=== PATIENT | male | born 1980 | race Caucasian/White ===

== ENCOUNTER 2016-08-17 18:46 | Emergency (ER) | payer MEDICAID, OTHER ==
[2016-08-17] MEDS ORDERED: CEPHALEXIN 500MG PREPACK#4 BTL TAKEHOME ONE (20:06)
[2016-08-17] MEDS ORDERED: SULFAMETHOX/TMP 800/160 MG 1 TAB PO ONE (20:06)
--- NOTE | 2016-08-17 20:08 | EDPHY ---
H & P Stated Complaint: IVDA 1 WEEK AGO NOW R ARM SWELLING Source: Patient Exam Limitations: No limitations - Personal History Current Tetanus/Diphtheria Vaccine: Yes Current Tetanus Diphtheria and Acellular Pertussis (TDAP): Yes Tetanus Vaccine Date: 2011 - Medical/Surgical History Hx Asthma: No Hx Chronic Respiratory Disease: No Hx Diabetes: No Hx Cardiac Disease: No Hx Renal Disease: No Hx Cirrhosis: No Hx Alcoholism: No Hx HIV/AIDS: No Hx Splenectomy or Spleen Trauma: No Other PMH: pmh-bipolar, migraines, ADD, depression. surg-none, IVDA - Social History Smoking Status: Current every day smoker HPI/ROS: CHIEF COMPLAINT: Right arm pain and swelling HISTORY OF PRESENT ILLNESS: Patient has right arm pain and swelling over the last 5 days. This is in the forearm only. [id number]. Slowly worsening. No numbness or tingling. No pain in the hand, wrist, elbow, brachium or shoulder. He admits to injecting heroin in the affected area last Saturday. The swelling developed 2 days later. No fever or chills. No sensory changes. No motor changes. Pain is worse with palpation or movement. Improved at rest. No other associated complaints or modifying factors. No use of blood thinners. Has not injected since. Tetanus is up-to-date. REVIEW OF SYSTEMS: Ten systems reviewed and are negative unless otherwise noted in the HPI PERTINENT MEDICAL HISTORY: IV drug use last Saturday EXAMINATION General Appearance: Alert, no distress Head: normocephalic, atraumatic Eyes: Pupils equal and round, no conjunctival pallor or injection ENT, Mouth: Mucous membranes moist Neck: Normal inspection, supple, non-tender Respiratory: No retractions or distress. Cardiovascular: Regular rate. Pulses are intact distally symmetrically with radial pulses 2+. Neurological: A&O, nonfocal, normal gait Skin: Warm and dry. Mild erythema over the right forearm, medial and anterior. No crepitus. No subcutaneous emphysema. No streaking. No lacerations. No trauma. No purulence Extremities: Mild tenderness over the area of cellulitis. Range of motion is fully intact in the hands, fingers, wrist, elbow and shoulder symmetrically. Neurovascular intact distal to the right cellulitis Psychiatric: Mood and affect normal DIFFERENTIAL DIAGNOSES: Including but not limited to cellulitis, DVT, infection, abscess, extravasation of substance MDM: 8:09 p.m. Right upper extremity cellulitis of the forearm in a patient who use IV drugs last Saturday. There is no involvement of the hand, wrist, elbow or shoulder. Range of motion is fully intact without any hesitation. No fever. Vital signs stable. I have ordered an ultrasound to rule out DVT, but I suspect this is just cellulitis without evidence of abscess. This started treatment with Bactrim and Keflex. 8:52 p.m. Patient has asked to be discharged home. The ultrasound is not yet been performed. We discussed the risks and benefits of not having the ultrasound performed this includes DVT, worsening of extremity and even PE or . He understands this risk and still wants to decline the ultrasound and to be discharged home. He is free to return at any time should he change his mind. He informs that he will come back tomorrow. We have started treatment with Bactrim and Keflex and he is to continue this. Continue with these medications. Ibuprofen, warm compresses. Return here for increasing redness, swelling or pain. Return here for any fever or chills. He is comfortable with this plan and discharged home neurovascular intact in stable condition SUPERVISION: This patient was independently evaluated without direct examination by the attending physician. Case was discussed with attending physician. (Maximino Elaine) Constitutional: Initial Vital Signs Temperature (C) 36.7 C 08/17/16 19:07 Heart Rate 93 08/17/16 19:07 Respiratory Rate 18 08/17/16 19:07 Blood Pressure 117/82 H 08/17/16 19:07 O2 Sat (%) 100 08/17/16 19:07 O2 Delivery Mode Room Air Allergies/Adverse Reactions: erythromycin base Allergy (Intermediate, Verified 08/17/16 19:09) Other-Enter Comments pseudoephedrine Allergy (Intermediate, Verified 08/17/16 19:09) Other-Enter Comments Penicillins Allergy (Unknown, Verified 08/17/16 19:09) Unknown sleep aids Allergy (Intermediate, Uncoded 08/17/16 19:09) Other-Enter Comments Home Medications: Medication Instructions Recorded lamoTRIgine [Lamictal] mg PO 12/24/10 Latuda 05/12/15 Buprenorphine HCl/Naloxone HCl 24 tab SL 08/17/16 [Suboxone 8 mg-2 mg Tablet] Cephalexin [Keflex (*)] 500 mg PO QID #40 cap 08/17/16 Lurasidone HCl [Latuda] 40 mg PO DAILY@0800 08/17/16 Sulfamethox/Tmp 800/160 mg 2 tab PO BID 10 Days 08/17/16 [Bactrim Ds] lamoTRIgine [Lamictal] 200 mg PO 08/17/16 Medical Decision Making ED Course/Re-evaluation: I did not see this patient while he was in the emergency department. However his care was discussed with the PA while the patient was in the department. I agree with treatment plan and management (Isaac Escobar) - Data Points Medications Given: Discontinued Medications Cephalexin (Keflex 500 Mg Prepack#4) 1 btl TAKEHOME EDNOW ONE PRN Reason: Protocol Stop: 08/17/16 20:07 Last Admin: 08/17/16 20:15 Dose: 1 btl Trimethoprim/Sulfamethoxazole (Bactrim Ds) 2 ea PO EDNOW ONE PRN Reason: Protocol Stop: 08/17/16 20:07 Last Admin: 08/17/16 20:16 Dose: 2 ea Departure - Departure Disposition: Home, Routine, Self-Care Clinical Impression: Right arm cellulitis Condition: Good Instructions: Cellulitis (ED) Additional Instructions: Warm compresses and antibiotics as discussed. Return here for wound check in 24 -48 hours. Return sooner for worsening swelling, redness or pain Referrals: NONE *PRIMARY CARE P,. [Primary Care Provider] - As per Instructions [facility],. [Clinic] - As per Instructions Lisa Goncalves MD [Medical Doctor] - As per Instructions Prescriptions: Cephalexin [Keflex (*)] 500 mg PO QID #40 cap Sulfamethox/Tmp 800/160 mg [Bactrim Ds] 2 tab PO BID 10 Days
[2016-08-17 21:04] VITALS: BP 134/84; PULSE 66; RESP 16; TEMP 97.9; O2SAT 96
== END 2016-08-17 21:04 | disposition home or self-care (01) ==
DX: L03.113 Cellulitis of right upper limb (principal); F17.200 Nicotine dependence, unspecified, uncomplicated

== ENCOUNTER 2017-03-15 08:32 | Emergency (ER) | payer MEDICAID ==
[2017-03-15 08:38] VITALS: RESP 16; TEMP 97.9
--- NOTE | 2017-03-15 08:52 | CPEKG ---
Heart Rate: 90 RR Interval: 667 P-R Interval: 160 QRSD Interval: 96 QT Interval: 376 QTC Interval: 460 P [place]: 32 QRS [place]: 24 T Wave [place]: 42 EKG Severity - NORMAL ECG - EKG Impression: SINUS RHYTHM Electronically Signed By: Tr Mason 15-Mar-2017 15:25:37
[2017-03-15 09:03] LABS: PLATELET COUNT 243 10^3/uL (150-400)
--- NOTE | 2017-03-15 09:12 | EDPHY ---
H & P Time Seen by Provider: 03/15/17 08:58 HPI/ROS: CHIEF COMPLAINT: Chest pain HISTORY OF PRESENT ILLNESS: 36-year-old male presents to the emergency department by private vehicle complaining of substernal chest pain that began at 9 o'clock yesterday morning. The patient states that the pain started rather abruptly. It is intermittent. He currently has no chest pain. He does not feel short of breath. He states that it is independent of movement. He does have pain with deep breathing when he does have the pain but not all the time. No calf pain or swelling. No recent travel. The patient has a history of substance abuse and has been sober from heroin for a few months. He is on methadone. His symptoms started after returning from the methadone Clinic yesterday morning. No vomiting. He does not feel short of breath. No abdominal pain. No nausea or vomiting. No diaphoresis. No headache. REVIEW OF SYSTEMS: Constitutional: No fever, no chills. Eyes: No double or blurry vision. ENT: No sore throat. Respiratory: No cough, no shortness of breath. Cardiac: chest pain. Gastrointestinal: No abdominal pain, vomiting or diarrhea. Genitourinary: No dysuria. Musculoskeletal: No neck or back pain. Skin: No rashes. Neurological: No headache. Past Medical/Surgical History: Substance abuse, smoker, bipolar, migraine headaches, ADD, depression Social History: Single and lives in [place] Smoking Status: Current every day smoker Physical Exam: General Appearance: Alert, no distress. Vital signs are stable. Eyes: Pupils equal and round. Extraocular motions are all intact. ENT: Mouth: Mucous membranes moist. Respiratory: No wheezing, rhonchi, or rales, lungs are clear to auscultation. Unable to reproduce pain with palpation to the anterior aspect of his chest. No palpable crepitus or other bony abnormality. Cardiovascular: Regular rate and rhythm. Gastrointestinal: Abdomen is soft and nontender, no masses, no rebound or guarding, bowel sounds normal. Neurological: Alert and oriented x 3, cranial nerves II through XII grossly intact Skin: Warm and dry, no rashes. Musculoskeletal: Nontender to palpate along the cervical, thoracic or lumbar spine. Neck is supple. Extremities: Full range of motion and no peripheral edema. Psychiatric: Patient is oriented X 3, there is no agitation. Constitutional: Initial Vital Signs Temperature (C) 36.6 C 03/15/17 08:34 Heart Rate 99 03/15/17 08:34 Respiratory Rate 16 03/15/17 08:34 Blood Pressure 131/83 H 03/15/17 08:34 O2 Sat (%) 96 03/15/17 08:34 O2 Delivery Mode Room Air Allergies/Adverse Reactions: erythromycin base Allergy (Intermediate, Verified 03/15/17 08:33) Other-Enter Comments pseudoephedrine Allergy (Intermediate, Verified 03/15/17 08:33) Other-Enter Comments Penicillins Allergy (Unknown, Verified 03/15/17 08:33) Unknown sleep aids Allergy (Intermediate, Uncoded 03/15/17 08:33) Other-Enter Comments Home Medications: Medication Instructions Recorded lamoTRIgine [Lamictal] mg PO 12/24/10 Latuda 05/12/15 Buprenorphine HCl/Naloxone HCl 24 tab SL 08/17/16 [Suboxone 8 mg-2 mg Tablet] Cephalexin [Keflex (*)] 500 mg PO QID #40 cap 08/17/16 Lurasidone HCl [Latuda] 40 mg PO DAILY@0800 08/17/16 Sulfamethox/Tmp 800/160 mg 2 tab PO BID 10 Days tab 08/17/16 [Bactrim Ds] lamoTRIgine [Lamictal] 200 mg PO 08/17/16 Medical Decision Making - Diagnostics EKG Interpretation: Normal sinus rhythm. No acute T-wave abnormalities. This is reviewed by Dr. Tr Mason. See interpretation in trace master. Imaging Results: Imaging Impressions Chest X-Ray 03/15/17 09:09 Impression: Hilar vascular prominence. If there is concern for chronic or recurrent pulmonary emboli or adenopathy, then consider CTA or CT. Results called and discussed with NIKOLAY NGUYEN, at 03/15/2017 9:35 Chest/Thorax CTA 03/15/17 09:58 Impression: 1. No evidence of pulmonary embolus using CT protocol. 2. Mild peribronchial cuffing in the perihilar region bilaterally. Findings are nonspecific but can be seen with bronchitis, viral process, or reactive airways disease. Findings discussed with Nikolay Nguyen PA-C at 11:06 hour, 03/15/2017. Imaging: Discussed imaging studies w/ personal coach Radiologist ED Course/Re-evaluation: 36-year-old male presents to the emergency department with chest pain. Patient had laboratory studies. Troponin was negative. Patient had mildly elevated D- dimer. Chest x-ray reveals prominent hilar lymph nodes. Radiologist was questioning possible chronic pulmonary embolism. Given elevated D-dimer and prominent hilar lymph nodes is, I recommended CT pulmonary angiogram to evaluate for possible PE. Patient verbalized understanding and agreed. CT pulmonary angiogram reveals no evidence of pulmonary embolism. The case was discussed with Dr. Tr Mason, secondary supervising physician, who did not directly evaluate the patient but agrees with treatment and plan. EKG reveals normal sinus rhythm with no acute ST T wave abnormalities. Patient was comfortable being discharged home. Differential Diagnosis: Chest pain including but not limited to myocardial ischemia, pulmonary embolus, chest wall pain, pleural inflammation and pulmonary infectious causes. - Data Points Laboratory Results: Laboratory Results 03/15/17 08:55 03/15/17 08:55 03/15/17 03/15/17 03/15/17 08:55 08:55 08:55 WBC 10.09 10^3/uL H 10^3/uL (3.80-9.50) RBC 4.53 10^6/uL 10^6/uL (4.40-6.38) Hgb 14.0 g/dL g/dL (13.7-17.5) Hct 40.1 % % (40.0-51.0) MCV 88.5 fL fL (81.5-99.8) MCH 30.9 pg pg (27.9-34.1) MCHC 34.9 g/dL g/dL (32.4-36.7) RDW 13.6 % % (11.5-15.2) Plt Count 243 10^3/uL 10^3/uL (150-400) MPV 9.8 fL fL (8.7-11.7) Neut % (Auto) 69.6 % % (39.3-74.2) Lymph % (Auto) 20.6 % % (15.0-45.0) Petroleum % (Auto) 8.3 % % (4.5-13.0) Eos % (Auto) 0.9 % % (0.6-7.6) Baso % (Auto) 0.4 % % (0.3-1.7) Nucleat RBC Rel Count 0.0 % % (0.0-0.2) Absolute Neuts (auto) 7.02 10^3/uL H 10^3/uL (1.70-6.50) Absolute Lymphs (auto) 2.08 10^3/uL 10^3/uL (1.00-3.00) Absolute Monos (auto) 0.84 10^3/uL H 10^3/uL (0.30-0.80) Absolute Eos (auto) 0.09 10^3/uL 10^3/uL (0.03-0.40) Absolute Basos (auto) 0.04 10^3/uL 10^3/uL (0.02-0.10) Absolute Nucleated RBC 0.00 10^3/uL 10^3/uL (0-0.01) Immature Gran % 0.2 % % (0.0-1.1) Immature Gran # 0.02 10^3/uL 10^3/uL (0.00-0.10) D-Dimer 0.52 ug/mLFEU H ug/mLFEU (0.00-0.50) Sodium 140 mEq/L mEq/L (134-144) Potassium 4.1 mEq/L mEq/L (3.5-5.2) Chloride 104 mEq/L mEq/L (97-110) Carbon Dioxide 25 mEq/l mEq/l (22-31) Anion Gap 11 mEq/L mEq/L (8-16) BUN 16 mg/dL mg/dL (7-23) Creatinine 0.9 mg/dL mg/dL (0.7-1.3) Estimated GFR > 60 Glucose 96 mg/dL mg/dL (70-100) Calcium 9.2 mg/dL mg/dL (8.5-10.4) Troponin I < 0.012 ng/mL ng/mL (0.000-0.034) Medications Given: Discontinued Medications Sodium Chloride (Ns) 1,000 mls @ 0 mls/hr IV ONCE ONE PRN Reason: Wide Open Stop: 03/15/17 09:51 Last Admin: 03/15/17 09:54 Dose: 1,000 mls Ondansetron HCl (Zofran) 4 mg IVP EDNOW ONE Stop: 03/15/17 09:51 Last Admin: 03/15/17 09:54 Dose: 4 mg Departure - Departure Disposition: Home, Routine, Self-Care Clinical Impression: Chest pain Qualifiers: Chest pain type: unspecified Qualified Code(s): R07.9 - Chest pain, unspecified Condition: Good Instructions: Chest Pain (ED) Additional Instructions: Return to the emergency department if he developed recurring chest pain, if he feels short of breath, or if you feel worse in any way. Ibuprofen 600 mg every 8 hr as needed for pain. Referrals: DORI DELGADO [Primary Care Provider] - 1-2 days without fail
[2017-03-15] MEDS ORDERED: ONDANSETRON 4 MG/2 ML VIAL IVP ONE (09:50)
[2017-03-15] MEDS ORDERED: NS 1,000 ML IV ONE (09:50)
[2017-03-15] MEDS ORDERED: IOPAMIDOL (ISOVUE 370) 100 ML BTL IV ONE (10:31)
[2017-03-15 11:41] VITALS: BP 121/86; PULSE 78; O2SAT 98
== END 2017-03-15 11:41 | disposition home or self-care (01) ==
DX: R07.9 Chest pain, unspecified (principal); F17.200 Nicotine dependence, unspecified, uncomplicated
CPT/HCPCS: 96374; J2405; Q9967

== ENCOUNTER 2018-05-31 08:37 | Emergency (ER) | payer MEDICAID ==
[2018-05-31 08:54] VITALS: BP 130/92
--- NOTE | 2018-05-31 08:55 | EDPHY ---
H & P Time Seen by Provider: 05/31/18 08:49 HPI/ROS: CHIEF COMPLAINT: Right ankle pain HISTORY OF PRESENT ILLNESS: Patient is a 37-year-old man who slipped on the ice and twisted his right ankle about 5:00 a.m. This morning. He has not been able to bear weight since. Denies knee pain or foot pain. No other injuries. Severity: Moderate Modifying factors: None REVIEW OF SYSTEMS: Constitutional: denies: chills, fever, recent illness, recent injury EENTM: denies: blurred vision, double vision, nose congestion Respiratory: denies: cough, shortness of breath Cardiac: denies: chest pain, irregular heart rate, lightheadedness, palpitations Gastrointestinal/Abdominal: denies: abdominal pain, diarrhea, nausea, vomiting, blood streaked stools Genitourinary: denies: dysuria, frequency, hematuria, pain Musculoskeletal: See HPI Skin: denies: lesions, rash, jaundice, bruising Neurological: denies: headache, numbness, paresthesia, tingling, dizziness, weakness Hematologic/Lymphatic: denies: blood clots, easy bleeding, easy bruising Immunologic/allergic: denies: HIV/AIDS, transplant 10 systems reviewed and negative except as noted EXAM: GENERAL: Well-appearing, well-nourished and in no acute distress. HEAD: Atraumatic, normocephalic. EYES: Pupils equal round and reactive to light, extraocular movements intact, sclera anicteric, conjunctiva are normal. ENT: TMs normal, nares patent, oropharynx clear without exudates. Moist mucous membranes. NECK: Normal range of motion, supple without lymphadenopathy or JVD. LUNGS: Breath sounds clear to auscultation bilaterally and equal. No wheezes rales or rhonchi. HEART: Regular rate and rhythm without murmurs, rubs or gallops. ABDOMEN: Soft, nontender, normoactive bowel sounds. No guarding, no rebound. No masses appreciated. BACK: No CVA tenderness, no spinal tenderness, step-offs or deformities EXTREMITIES: Pain and swelling just below the right lateral malleolus. No bony tenderness. No lower leg or proximal fibular tenderness. No foot pain or tenderness. NEUROLOGICAL: Cranial nerves II through XII grossly intact. Normal speech, normal gait. 5/5 strength, normal movement in all extremities, normal sensation , normal reflexes PSYCH: Normal mood, normal affect. SKIN: Warm, dry, normal turgor, no visible rashes or lesions. Source: Patient Exam Limitations: No limitations - Personal History Tetanus Vaccine Date: 2011 - Medical/Surgical History Hx Asthma: No Hx Chronic Respiratory Disease: No Hx Diabetes: No Hx Cardiac Disease: No Hx Renal Disease: No Hx Cirrhosis: No Hx Alcoholism: No Hx HIV/AIDS: No Hx Splenectomy or Spleen Trauma: No Other PMH: pmh-bipolar, migraines, ADD, depression. surg-none, IVDA - Family History Significant Family History: No pertinent family hx - Social History Smoking Status: Current every day smoker Alcohol Use: Sober Constitutional: Initial Vital Signs Temperature (C) 37.1 C 05/31/18 08:49 Heart Rate 88 05/31/18 08:49 Respiratory Rate 18 05/31/18 08:49 Blood Pressure 130/92 H 05/31/18 08:49 O2 Sat (%) 93 05/31/18 08:49 O2 Delivery Mode Room Air Allergies/Adverse Reactions: erythromycin base Allergy (Intermediate, Verified 05/31/18 08:45) Other-Enter Comments pseudoephedrine Allergy (Intermediate, Verified 05/31/18 08:45) Other-Enter Comments Penicillins Allergy (Unknown, Verified 05/31/18 08:45) Unknown sleep aids Allergy (Intermediate, Uncoded 05/31/18 08:45) Other-Enter Comments Home Medications: Medication Instructions Recorded Latuda 05/12/15 Adderall 20 mg (*) 05/31/18 Depakote 05/31/18 Lexapro 10 MG 05/31/18 Ida Carbonate 05/31/18 Medical Decision Making - Diagnostics Imaging Results: Imaging Impressions Ankle X-Ray 05/31/18 08:54 Impression: Lateral ankle sprain. No fracture. Imaging: Discussed imaging studies w/ call center director Radiologist Procedures: Procedure: Splint placement. A Velcro splint was applied. After application of the splint I returned and re- examined the patient. The splint was adequately immobilizing the joint and distal to the splint the patient's circulation and sensation was intact. ED Course/Re-evaluation: 9:25 a.m. we discussed the patient's x-ray results. He is reassured. He states that he has sprained ankles before. He states that in the past he has not rested them appropriately. We discussed typical treatment and symptom course. We discussed indications for returning. He was placed in a brace and instructed on crutches and feels comfortable with these. Differential Diagnosis: Partial list of the Differential diagnosis considered include but were not limited to; ankle sprain, ankle fracture and although unlikely based on the history and physical exam, I also considered infection, gout, arthritis, knee injury, foot injury. I discussed these differential diagnoses and the plan with the patient as well as the usual and expected course. The patient understands that the diagnosis is provisional and that in medicine we are not always correct and that further workup is often warranted. Usual and customary warnings were given. All of the patient's questions were answered. The patient was instructed to return to the emergency department should the symptoms at all worsen or return, otherwise to followup with the physician as we discussed. Departure - Departure Disposition: Home, Routine, Self-Care Clinical Impression: Right ankle sprain Qualifiers: Encounter type: initial encounter Involved ligament of ankle: anterior talofibular ligament Qualified Code(s): S93.491A - Sprain of other ligament of right ankle, initial encounter Condition: Fair Instructions: Ankle Sprain (ED) Referrals: LEON DELGADO [Other] - As per Instructions Austyn Cr MD [Medical Doctor] - As per Instructions
== END 2018-05-31 09:49 | disposition home or self-care (01) ==
LOC: CED 08:37
DX: S93.491A Sprain of other ligament of right ankle, initial encounter (principal); W00.2XXA Other fall from one level to another due to ice and snow, initial encounter; Y92.480 Sidewalk as the place of occurrence of the external cause
CPT/HCPCS: 73610-PO; 99283-ER; L4350-ER